=== PATIENT | female | born 1995 | race Caucasian/White ===

== ENCOUNTER 2019-06-25 07:57 | Outpatient (RCR) | payer BC, SELFPAY ==
[2019-06-15 10:14] VITALS: BP 108/75; PULSE 103
[2019-06-25 08:28] VITALS: BP 120/77; PULSE 90
== END 2019-09-13 23:59 | disposition home or self-care (01) ==
LOC: ANHOBOP 07:57
PROVIDERS: Visit Provider Obstetrics & Gynecology
DX: O36.8120 Decreased fetal movements, second trimester, not applicable or unspecified (principal); Z3A.27 27 weeks gestation of pregnancy; O36.8130 Decreased fetal movements, third trimester, not applicable or unspecified; Z3A.28 28 weeks gestation of pregnancy
CPT/HCPCS: 59025

== ENCOUNTER 2019-09-12 18:56 | Inpatient (IN) | payer BC, SELFPAY ==
[2019-09-12] VITALS (19 sets, daily range): BP systolic 99–152; BP diastolic 74–95; PULSE 81–110; TEMP 36.7–36.8; BMI 46.2
--- NOTE | 2019-09-12 18:56 | LDADM ---
This patient, Lucia Thomas, was admitted to Labor/Delivery/Recovery 109 on 09/12/19 at 18:56. Plans for labor, pain management and were discussed with patient. Patient/family oriented to hospital policies and general routines including ID bracelet, bed and alarms, visiting hours, pain management, procedures, bathroom and other care routines, personal items, smoking policy, room service/diet and guest tray routines, security routines, and visiting hours. Patient/Family are encouraged to report perceived risks to care and to ask questions if they do not understand what they are told or what they should do. See OBIX for further documentation.
[2019-09-12 19:43] LABS: Basophils Percent Auto 0.2 % (0.2-1.2); Eosinophils Absolute Auto 0.1 K/mm3 (0-0.3); Eosinophils Percent Auto 0.5 % (0-4.4); Hematocrit 39.7 % (37.0-47.0); Hemoglobin 13.7 g/dL (12.0-15.0); Immature Granulocyte Absolute 0.07 K/mm3 (0.00-0.031); Immature Granulocyte Percent A 0.5 % (0-0.5); Lymphocytes Percent Auto 18.3 % (18.3-44.2); Mean Corpuscular HGB Conc 34.5 g/dl (32-36); Mean Corpuscular Hemoglobin 31.7 pg (26-34); Mean Corpuscular Volume 91.9 fl (80-100); Mean Platelet Volume 11.6 fl (7.4-10.4); Monocytes Absolute Auto 0.7 K/mm3 (0.1-0.6); Monocytes Percent Auto 5.1 % (2.6-8.5); Neutrophils Absolute Auto 9.9 K/mm3 (1.3-6.7); Neutrophils Percent Auto 75.4 % (45.5-73.1); Platelet Count Result 206 k/mm3 (150-375); Red Blood Count 4.32 M/mm3 (4.2-5.4); Red Cell Distribution Width 13.2 % (11.5-14.5); White Blood Count 13.1 K/mm3 (4.5-10.0)
[2019-09-12] MEDS: DINOPROSTONE 10 MG VAG INSERT VAGINAL (21:11)
[2019-09-13] VITALS (207 sets, daily range): BP systolic 69–140; BP diastolic 24–114; PULSE 66–209; TEMP 36.1–37.8; O2SAT 84–100
[2019-09-13] MEDS: LACTATED RINGERS 1,000 ML 125 ML IV CONT ×4 (07:51→19:16)
[2019-09-13] MEDS: OXYTOCIN 30 UNITS/NS 500 ML 30 UNITS/500 ML BAG 6 UNITS IV CONT (07:51)
--- NOTE | 2019-09-13 08:14 | P.PNAN_ITS ---
Anes - Eval Pre Procedure Procedure: Labor epidural Date/Time: 09/13/19 08:14 Surgeon: Loco Jordan M.D. Preop Diagnosis: pain during labor Pre Op Diagnosis: Ind Patient Data Age: 24 Gender: F Height: 1.75 m Weight: 142 kg Last Vital Signs Temp 36.3 C L 09/13/19 07:54 Pulse 83 09/13/19 08:01 BP 118/79 09/13/19 08:01 Allergies Allergy/AdvReac Type Severity Reaction Status Date / Time Sulfa (Sulfonamide AdvReac Unknown NAUSEA Verified 01/08/18 15:09 Antibiotics) Home Medications Medication Instructions Recorded Confirmed Type PNV cmb#95-ferrous fumarate-FA 1 tablet PO HS 06/15/19 08/12/19 History [] Pepcid 10 mg PO BID PRN 06/15/19 08/12/19 History Laboratory Tests 09/12/19 09/12/19 09/12/19 19:32 19:32 19:32 WBC 13.1 K/mm3 H K/mm3 (4.5-10.0) RBC 4.32 M/mm3 M/mm3 (4.2-5.4) Hgb 13.7 g/dL g/dL (12.0-15.0) Hct 39.7 % % (37.0-47.0) MCV 91.9 fl fl (80-100) MCH 31.7 pg pg (26-34) MCHC 34.5 g/dl g/dl (32-36) RDW 13.2 % % (11.5-14.5) Plt Count 206 k/mm3 k/mm3 (150-375) MPV 11.6 fl H fl (7.4-10.4) Immature Gran % (Auto) 0.5 % % (0-0.5) Neut % (Auto) 75.4 % H % (45.5-73.1) Lymph % (Auto) 18.3 % % (18.3-44.2) [place] % (Auto) 5.1 % % (2.6-8.5) Eos % (Auto) 0.5 % % (0-4.4) Baso % (Auto) 0.2 % % (0.2-1.2) Lymph # (Auto) 2.40 K/mm3 K/mm3 (0.9-3.2) [place] # (Auto) 0.7 K/mm3 H K/mm3 (0.1-0.6) Eos # (Auto) 0.1 K/mm3 K/mm3 (0-0.3) Baso # (Auto) 0.0 K/mm3 K/mm3 (0.0-0.1) Abs Immat Gran (auto) 0.07 K/mm3 H K/mm3 (0.00-0.031) Absolute Neuts (auto) 9.9 K/mm3 H K/mm3 (1.3-6.7) Absolute Nucleated RBC 0.0 K/mm3 K/mm3 (0.0-0.012) Nucleated RBC % 0.0 % % (0.0-0.2) RPR Pending Blood Type O Positive Antibody Screen Negative Patient hx anesthesia problems: none Family hx anesthesia problems: none PMFSH Past Medical History Medical History (Updated 09/13/19 @ 08:15 by Meryl Smith CRNA) GERD (gastroesophageal reflux disease) Morbid obesity with BMI of 45.0-49.9, adult Social History Social History Smoking status: Never smoker Substance use: never Gender identity (if verbalized by the patient): Female Spiritual care concerns: No Exam Day of Procedure 09/13/19 08:14
--- NOTE | 2019-09-13 08:30 | PM.IMHP ---
H&P: HPI History of Present Illness Chief complaint: Ind Narrative: 24 y/o G1 at 40 1/7 weeks here for induction of labor. Cervidil overnight, has been withdrawn. uncomplicated. GBS neg. Opos, rubella immune, HepBSAg neg, RPR neg, HIV neg. Ultrasound suggests normal anatomy. Review of Systems Review of Systems: All systems reviewed & are unremarkable except as noted in HPI and below PMFSH Past Medical History Medical History GERD (gastroesophageal reflux disease) Morbid obesity with BMI of 45.0-49.9, adult Family History Family History Mother Hypertension Father Hypertension Social History Social History Smoking status: Never smoker Substance use: never Gender identity (if verbalized by the patient): Female Spiritual care concerns: No Meds Home Medications and Allergies Home Medications Medication Instructions Recorded Confirmed Type PNV cmb#95-ferrous fumarate-FA 1 tablet PO HS 06/15/19 08/12/19 History [] Pepcid 10 mg PO BID PRN 06/15/19 08/12/19 History Allergies Allergy/AdvReac Type Severity Reaction Status Date / Time Sulfa (Sulfonamide AdvReac Unknown NAUSEA Verified 01/08/18 15:09 Antibiotics) Vital Signs Vital Signs - 24 hr 09/12/19 19:41 09/12/19 19:45 09/12/19 19:50 Temperature 36.7 C Pulse Rate 103 H 95 Blood Pressure 99/83 L 115/79 Pulse Oximetry 09/12/19 20:00 09/12/19 20:15 09/12/19 20:30 Temperature Pulse Rate 104 H 101 H 110 H Blood Pressure 130/86 129/87 130/86 Pulse Oximetry 09/12/19 20:45 09/12/19 21:16 09/12/19 21:30 Temperature Pulse Rate 91 90 95 Blood Pressure 140/86 110/74 123/88 Pulse Oximetry 09/12/19 21:46 09/12/19 22:01 09/12/19 22:16 Temperature Pulse Rate 95 94 82 Blood Pressure 142/78 H 142/92 H 152/95 H Pulse Oximetry 09/12/19 22:28 09/12/19 22:30 09/12/19 22:45 Temperature Pulse Rate 89 81 94 Blood Pressure 146/94 H 130/75 125/83 Pulse Oximetry 09/12/19 23:00 09/12/19 23:15 09/12/19 23:21 Temperature 36.8 C Pulse Rate 83 91 Blood Pressure 122/80 123/82 Pulse Oximetry 09/12/19 23:30 09/13/19 00:01 09/13/19 01:00 Temperature Pulse Rate 96 83 82 Blood Pressure 124/85 106/69 122/63 Pulse Oximetry 09/13/19 02:01 09/13/19 03:00 09/13/19 04:00 Temperature Pulse Rate 66 74 75 Blood Pressure 115/71 124/81 118/73 Pulse Oximetry 09/13/19 04:57 09/13/19 05:00 09/13/19 06:00 Temperature 36.4 C Pulse Rate 77 79 Blood Pressure 121/80 124/85 Pulse Oximetry 09/13/19 07:51 09/13/19 07:54 09/13/19 08:01 Temperature 36.3 C L Pulse Rate 82 83 Blood Pressure 119/77 118/79 Pulse Oximetry 09/13/19 08:16 09/13/19 08:31 09/13/19 08:46 Temperature Pulse Rate 78 81 83 Blood Pressure 126/68 131/75 122/80 Pulse Oximetry 09/13/19 09:01 09/13/19 09:16 09/13/19 09:31 Temperature Pulse Rate 72 76 81 Blood Pressure 128/85 133/80 126/71 Pulse Oximetry 09/13/19 09:46 09/13/19 10:01 09/13/19 10:16 Temperature Pulse Rate 75 82 78 Blood Pressure 130/88 117/39 L 129/76 Pulse Oximetry 09/13/19 10:31 09/13/19 10:59 09/13/19 11:08 Temperature 36.1 C L Pulse Rate 86 81 Blood Pressure 125/68 118/79 Pulse Oximetry 09/13/19 11:16 09/13/19 11:32 09/13/19 11:46 Temperature Pulse Rate 79 127 H 151 H Blood Pressure 125/76 100/24 L 124/93 H Pulse Oximetry 09/13/19 12:01 09/13/19 12:11 Temperature Pulse Rate 95 Blood Pressure 118/103 H Pulse Oximetry 100 Exam Const: Orientation/consciousness: patient oriented x3 Other: Well-developed, well-nourished female in no acute distress. Neck: Thyroid: thyroid normal Lymphatic: no lymphadenopathy noted (in neck, axilla or inguinal nodes) Resp: Ef
[2019-09-13 09:47] LABS: Rapid Plasma Reagin Non-Reactive (NonReactive)
--- NOTE | 2019-09-13 12:17 | PM.OBPNLAB ---
Pain Control Date/time seen: 09/13/19 12:17 Comments: Feeling more pain with contractions. Pelvic Exam Dilation (cm): 4 Effacement (%): 50 station: -2 Comments: IUPC replaced. Contractions Contraction frequency: 3 Contraction pattern: Regular Status status: Category l Assessment and Plan Pitocin rate (mU/min): 20 Comments: Continue labor. She is considering epidural for pain control.
--- NOTE | 2019-09-13 17:13 | PM.OBPNLAB ---
Pain Control Date/time seen: 09/13/19 17:13 Comments: Comfortable with epidural. Pelvic Exam Dilation (cm): 5 Effacement (%): 80 station: -1 Contractions Contraction frequency: 3 Contraction pattern: Regular Status Comments: NST reactive Assessment and Plan Comments: Continue labor.
[2019-09-13] MEDS: ONDANSETRON INJ 4 MG/2 ML VIAL IV PUSH (18:58)
[2019-09-13] MEDS: SODIUM CHLORIDE 0.9% IV 200 ML 400 ML I-UTERINE (20:51)
--- NOTE | 2019-09-13 22:07 | PM.OBPNLAB ---
Pain Control Date/time seen: 09/13/19 22:07 Comments: Pushing well. Pelvic Exam Dilation (cm): 10 Effacement (%): 100 station: +2 Contractions Contraction frequency: 3 Contraction pattern: Regular Status status: Category ll Comments: Reactive with variable decelerations. Assessment and Plan Pitocin rate (mU/min): 18 Comments: Continue pushing. Anticipate .
[2019-09-13] MEDS: OXYTOCIN 30 UNITS/NS 500 ML 30 UNITS/500 ML BAG 125 UNITS IV CONT (22:36)
--- NOTE | 2019-09-13 22:48 | P.PCNOB_ITS ---
OB - Delivery Note Procedure Delivery date: 09/13/19 Procedure: Induction of labor with Induction method: per pitocin protocol and other (Cervidil) Delivery augmentation: rupture of membranes and pitocin Delivery monitor: external FHT, external uterine, internal FHT and internal uterine Route of delivery: Delivery repair: vicryl (3-0) Specimen: Yes (cord blood) Estimated blood loss (mL): 380 Anesthesia type: Epidural Disposition: PACU Complications: None Narrative: 24 y/o G1 at 40 1/7 weeks gestation who presented to the hospital for induction of labor. Cervidil was placed overnight, then withdrawn the following morning. Oxytocin was administered intravenously. Amniotomy was performed with return of clear fluid. She received an epidural for pain control. Her labor progressed and her cervix dilated completely. She pushed with good effort and delivered the 's head to the perineum, followed by the body. The nose and mouth were bulb suctioned. After a delay, the cord was clamped and cut. The infant was handed off the field. Cord blood was collected. The placenta delivered spontaneously and was grossly normal in appearance. The usual 3 ve ssel cord was noted. A first degree midline perineal laceration was sustained. This was reapproximated using 3 0 Vicryl in the usual layered fashion. Bilateral periurethral lacerations were reapproximated using interrupted figure of eight sutures of the same material. Excellent hemostasis resulted as did excellent reapproximation of the normal anatomy. Needle and instrument counts were correct. The patient was taken to recovery room in stable condition. The infant went to the nursery in stable condition. I was present and scrubbed for the entire delivery. [place] Baby Date of : 09/13/19 Time of : 22:21 Weeks of gestation at delivery: 40 gender: Male Weight (pounds): 8 Weight (ounces): 6 presentation: vertex position: Right Occiput Anterior Placenta delivery description: Spontaneous and Normal Configuration cord vessel description: 3 Vessels score one minute: 8 score five minutes: 9
--- NOTE | 2019-09-13 22:51 | P.DS_ITS ---
DS: Admitting Diagnosis Admitting Diagnosis Admitting Diagnosis: IUP at 40 1/7 weeks DS: Discharge Diagnosis Discharge Diagnosis (1) (normal spontaneous vaginal delivery): Code(s): O80 - Encounter for full-term uncomplicated delivery Status: Acute OB - DS: Summary OB Procedures : None OB Procedures Intrapartum: Spontaneous Vag Delivery OB Procedures: : None Time Spent with Patient Time attestation: Total time spent providing and/or coordinating discharge services: DS: Data Data Completed and Pending Labs on day of discharge: Labs from last 24 hours 09/12/19 19:32 RPR Non-reactive Discharge Plan Discharge Attending physician on discharge: Loco Jordan Discharging Clinician: Loco Jordan Patient Disposition: Home, Self-Care Activity: pelvic rest Diet: regular Discharge Instructions: Call or return if temperature above 100.4? F, increased abdominal pain, in creased vaginal bleeding or any new problems. Stand Alone Forms: General Discharge Information Follow-up/Referrals: Loco Jordan MD [Physician] - (6 weeks) Discharge Medications: New ibuprofen 600 mg tablet 600 mg PO Q6H PRN (Reason: cramps) Qty: 30 RF: 0 No Action PNV cmb#95-ferrous fumarate-FA [] 28 mg iron- 800 mcg Tablet 1 tablet PO HS RF: 0 Pepcid 10 mg 10 mg PO BID PRN (Reason: Heartburn) RF: 0 Date of admission: 09/12/19 18:56 Primary Care Provider: PHYSICIAN,SMALL BUSINESS REPRESENTATIVE Admitting Provider: Loco Jordan Attending physician on admission: Loco Jordan
[2019-09-14] VITALS (10 sets, daily range): BP systolic 107–130; BP diastolic 66–82; PULSE 85–124; RESP 16–18; TEMP 36.6–36.8; O2SAT 98–100
[2019-09-14] MEDS: BENZOCAINE 20% AER SPR (*SP) 56 GM CAN 1 SPRAY TOPICAL ×2 (01:20→04:12)
[2019-09-14] MEDS: WITCH HAZEL 40 PADS 1 PAD TOPICAL ×2 (01:20→04:12)
[2019-09-14] MEDS: IBUPROFEN 600 MG TABLET PO ×3 (01:49→17:16)
[2019-09-14 04:56] LABS: Hematocrit 33.9 % (37.0-47.0); Hemoglobin 11.7 g/dL (12.0-15.0)
[2019-09-14] MEDS: MULTIVIT/MIN/PREN/FOL AC/IRON TABLET 1 TAB PO (10:19)
--- NOTE | 2019-09-14 15:44 | PC.NURSE ---
1250-Patient transferred to post room #287 via wheelchair. Support person present. Oriented to unit, room, information board, rooming in, admission packet and security measures. Patient verbalizes understanding.
--- NOTE | 2019-09-14 17:33 | PM.OBPNVD ---
OB - PN: Subj Subjective Date/time seen: 09/14/19 17:33 Narrative: Pain OK. Would like circumcision for son. OB - PN: Obj Data Labs CBC & Chem 7: 09/14/19 04:49 Labs: Laboratory Results - last 24 hr 09/14/19 04:49 Hgb 11.7 L Hct 33.9 L OB - PN A/P Plan Comments: A: PPD#1, doing well. P: Routine care. Reviewed circ. Exam Psych: Other: AVSS ABD soft, nontender, fundus firm EXT nontender
[2019-09-15] MEDS: IBUPROFEN 600 MG TABLET PO ×2 (00:44→08:48)
[2019-09-15 08:40] VITALS: BP 122/73; PULSE 96; RESP 18; TEMP 37.3; O2SAT 99
--- NOTE | 2019-09-15 08:47 | PM.OBPNVD ---
OB - PN: Subj Subjective Date/time seen: 09/15/19 08:47 Narrative: Pain OK. Would like to go home. OB - PN: Obj Data Labs CBC & Chem 7: 09/14/19 04:49 OB - PN A/P Plan Comments: A: PPD#2, doing well. P: Home to f/u 6 weeks. Exam Psych: Other: AVSS ABD soft, nontender, fundus firm EXT nontender
[2019-09-15] MEDS: MULTIVIT/MIN/PREN/FOL AC/IRON TABLET 1 TAB PO (08:48)
--- NOTE | 2019-09-15 09:50 | PC.NURSE ---
Mother called out for assist with waking for feeding. Mother states was circumcised this am and is now sleepy. Assured mother this is normal. Reviewed feeding cues, frequencies, duration of feedings, feeding elimination flow sheet, and signs of adequate intake. Demonstrated stimulation techniques to wake infant for feeding. easily awoken and showing feeding cues. Assisted with infant to breast. Reviewed positioning/alignment in cross cradle, holding breast in U hold and guided asymmetrical latch on. Discussed rational for each. Within a few attempts, infant was able to latch correctly. Infant nursed eagerly, with steady draws and frequent swallowing noted. Reviewed signs of a correct latch, effective nursing and suck swallow ratio. Infant was able to maintain latch without discomfort to mother. Nipple care reviewed. Suggested to stimulate to keep awake and nursing effectively for increased intake and assist in maintaining deep latch. Mother has concerns infant is getting enough. Reviewed is WNL for signs of adequate intake. Advised to wake to feed and stimulate while feeding. Mother is feeding as required and waking infant to feed if needed. Infant has had at least 8 effective feedings in the past 24 hours, and is currently meeting outcomes for weight, output, jaundice and feeding frequencies. Mother states she feels confident to continue effective at home. Reviewed transition to breast milk, signs of adequate intake, and engorgement/relief. Instructed to call ICP if intake/output less than required. Reviewed regular medications mother is taking. Information provided per Angy. Reviewed community resources on the [facility] website and in the Mom/Baby guide. Information on outpatient services provided. Mother has no further questions at this time.
[2019-09-16 15:33] VITALS: BP 115/69; PULSE 94; RESP 20; TEMP 37.2; O2SAT 100
== END 2019-09-15 14:43 | disposition home or self-care (01) | DRG 807 ==
LOC: ANHLDR 09-13 22:53 → ANHOBPP 09-14 02:28 → ANHOB2 09-14 12:59
PROVIDERS: Admitting Provider Obstetrics & Gynecology; Visit Provider Obstetrics & Gynecology
DX: O99.62 Diseases of the digestive system complicating childbirth (principal); Z37.0 Single live birth; Z3A.40 40 weeks gestation of pregnancy; K21.9 Gastro-esophageal reflux disease without esophagitis; O99.214 Obesity complicating childbirth; E66.01 Morbid (severe) obesity due to excess calories; O36.8330 Maternal care for abnormalities of the fetal heart rate or rhythm, third trimester, not applicable or unspecified; O70.0 First degree perineal laceration during delivery
CPT/HCPCS: 36415; 85014; 85018; 85025; 86592; 86850; 86900; 86901; A9270; J2405; J2590; J2795; J7030; J7120

== ENCOUNTER 2019-10-17 13:24 | Outpatient (RCR) | payer BC, SELFPAY ==
--- NOTE | 2019-10-17 14:00 | PC.NURSE ---
IN 1105 OUT 1155 HISTORY: Pt. delivered at [facility] at 40 weeks. had no complications after delivery. Mother had no complications after delivery. is now 30+ days/weeks old. Infant appears to be well cared for. has been seen by ICP as scheduled. Infant last seen by ICP on 10/11/2019. Mother reports: Infant was latching well while in the hospital. Within a few days at home began to refuse to latch and was on and off during feedings. Mother introduced the nipple shield with a friends advised. will latch with the shield and will feed up to 40 minutes, infant is not satisfied after , mother will then supplement 1 oz of expressed milk. sleepy while at breast, having to wake freq during the feeding and is fussy between feedings. Mother reports he never acts satisfied. Mother also reports infant is slow to begin the bottle and is very sloppy while feeding with a fair amount of bottle running out while feeding. Infant breastfeeds every 1-1.5 hours during the day and 2-3 hours during the night. Mother is pumping 1-1.5 oz after 15 minutes of pumping after all feedings using a double electric stimulation pump. Mother is tearful and reports she is very tired and considering switching to pumping and bottle feeding. Mother wishes: To increase milk supply and have infant more consistent with . Currently at 8 wets per day and 2-3 yellow seedy stools per day. weight: 8#6 Discharge weight: 7#9 Last Weight: 8#4 Pre feeding weight: 3878 Post feeding weight: 3893 OBSERVATION: Mother has marked breast asymmetry. Discussed how asymmetry may impact breastmilk production. Infant appears to have a possible tight frenulum. Mother is using the 24mm nipple shield the correct size for , she is able to apply shield correctly. Using the cross cradle position mother latches shallow to shield. eagerly begins to nurse with a short chewy suck. Assisted with cross cradle, reviewing positioning/alignment, holding breast using U hold, and asymmetrical latch on. was able to latch correctly. nursed eagerly, with bursts of steady draws with more short chewy sucks, occasional swallowing noted. Reviewed signs of a correct latch, effective nursing and suck swallow ratio. has freq long pausing, advised to stimulate to entice into an effective suck pattern. Infant will begin suckling with short burst of draws and return to pausing and short chewy suckling. When questioned how long infant actually breastfeeds the 40 minutes mother reports at breast is actually 10-20 minutes, with most of suckling the short chewy suck. Worked with bottle feeding. Mother allows to have the top of the nipple only and does not have take full nipple in while feeding. Mother uses a large base nipple at home and infant only takes in the tip, none of the large base. Discussed how this may impact suck and possible reason for the amount running out while feeding. PLAN: Suggested mother wake to feed by three hours, limit time to breast to 15-20 minutes on one breast, followed with 2 oz of EBM/formula supplementation and mother then pump for 15 minutes. Increase supplementation as infant requires to be satisfied at least 2.5 hours between feedings. Work with deep latch and keeping with long draws with an effective suck pattern. Plan is to have infant rested and willing to work with effective suck pattern while at the breast. Mother will have rest and to allow refill to increase milk supply. Follow up phone call scheduled for 10/19/2019
== END 2019-12-07 08:31 | disposition home or self-care (01) ==
LOC: ANHOBOP 13:24
PROVIDERS: Visit Provider Pediatrics
DX: Z39.1 Encounter for care and examination of lactating mother (principal)
CPT/HCPCS: 99212; G0463

== ENCOUNTER 2019-12-08 10:22 | Emergency (ER) | payer OTHER, BC, SELFPAY ==
[2019-12-08 10:30] VITALS: BP 145/94; PULSE 88; RESP 16; TEMP 36.4; O2SAT 100
--- NOTE | 2019-12-08 10:30 | ED.SKABFB ---
HPI - Skin/Abscess/Foreign Bdy General Chief complaint: Skin/Abscess/Foreign Body Stated complaint: cat bite/scratch Time Seen by Provider: 12/08/19 10:30 Source: patient and RN notes reviewed History of Present Illness HPI narrative: Patient is a 24-year-old female who presents the urgent care with complaints of scratches and bites from a cat to the left hand/left lower arm. Patient states that occurred just prior to arrival while she was at work, at the [employer]. Patient states that she was drawing blood from the cat when it started to attack her. States that she had just updated the rabies vaccination prior to the attack. States that the last vaccination was in 2018. No other acute complaints or injuries. No acute distress noted. Patient read the plan of care. Related Data Home Medications Medication Instructions Recorded Confirmed famotidine 10 mg PO DAILY 12/08/19 12/08/19 Allergies Allergy/AdvReac Type Severity Reaction Status Date / Time Sulfa (Sulfonamide AdvReac Unknown NAUSEA Verified 12/08/19 10:30 Antibiotics) Review of Systems Review of Systems: Narrative: CONSTITUTIONAL: Denies fever, chills, or sweats. EYES: Denies visual changes, redness, or discharge. ENT: Denies rhinorrhea, congestion, sore throat, or otalgia. CARDIOVASCULAR: Denies chest pain, palpitations, or edema. RESPIRATORY: Denies cough or dyspnea. GASTROINTESTINAL: Denies abdominal pain, nausea, vomiting, or diarrhea. GENITOURINARY: Denies dysuria or hematuria. SKIN: Reports of multiple cat scratches/bites to the left hand/left lower arm MUSCULOSKELETAL: Denies back pain, joint pain, or myalgia. NEUROLOGIC: Denies headache, numbness, or weakness. All other systems reviewed are negative, except as documented in HPI. PMFSH Social History Social History Smoking status: Never smoker Substance use: never Gender identity (if verbalized by the patient): Female Spiritual care concerns: No Comments At the time of my signature, I reviewed and agree with the nursing past medical, surgical, social, and family history. There is no relevant family history pertinent to the patient complaint. Exam Narrative: Exam Narrative: GENERAL: This is a well-nourished, well-developed patient, in no apparent distress. HEAD: normocephalic, atraumatic. EYES: PERRL. Sclera clear/white. Vision is grossly intact. EARS: External ears normal NOSE: External nose normal with no obvious nasal discharge, nares without redness, no rhinorrhea. THROAT: Mucous membranes moist NECK: Neck supple SKIN: Multiple superficial scratches to the dorsal right hand and left forearm with scattered puncture sites. NEURO: awake, alert, and oriented to person, place and time. There were no obvious focal neurologic abnormalities. EXTREMITIES: No clubbing, cyanosis, or edema. Course Vital Signs Vital signs: Vital Signs Temperature 97.6 F 12/08/19 10:30 Pulse Rate 88 12/08/19 10:30 Respiratory Rate 16 12/08/19 10:30 Blood Pressure 145/94 H 12/08/19 10:30 Pulse Oximetry 100 12/08/19 10:30 Temperature 97.6 F 12/08/19 10:30 Pulse Rate 88 12/08/19 10:30 Respiratory Rate 16 12/08/19 10:30 Blood Pressure 145/94 H 12/08/19 10:30 Pulse Oximetry 100 12/08/19 10:30 Reviewed-patient is informed that they may have pre-hypertension or hypertension based on a blood pressure reading in the department. I recommend the patient call the primary care provider listed on their discharge instructions or a physician of their choice this week to arrange follow-up for further evaluation of possible pre-hypertension or hypertension. MDM - Skin/Abscess/Foreign Bdy MDM Narrative Medical decision making narrative: Advised the patient to complete oral antibiotic regimen as prescribed. Make sure to keep the wounds very clean with plain Dial soap and water. Follow-up with the health department regarding rabies
== END 2019-12-08 10:47 | disposition home or self-care (01) ==
PROVIDERS: Emergency Provider Nurse Practitioner Family
DX: S60.512A Abrasion of left hand, initial encounter (principal); W55.01XA Bitten by cat, initial encounter
CPT/HCPCS: 99213; G0463